=== PATIENT | male | born 1990 | race Caucasian/White ===

== ENCOUNTER → 2019-07-05 | Outpatient (CLI) | payer OTHER ==
--- NOTE | 2019-07-05 08:11 | US ---
EXAMINATION TYPE: US abdomen complete DATE OF EXAM: 07/05/2019 COMPARISON: NONE CLINICAL HISTORY: R10.12 LUQ abd pain. EXAM MEASUREMENTS: Liver Length: 13.7 cm Gallbladder Wall: 0.3 cm CBD: 0.3 cm Spleen: 11.1 cm Right Kidney: 11.3 x 3.8 x 5.6 cm Left Kidney: 11.0 x 5.0 x 5.3 cm Pancreas: Obscured by bowel gas Liver: wnl Gallbladder: large stones, no wall thickening Evidence for sonographic Osborne's sign: no CBD: wnl Spleen: wnl Right Kidney: No hydronephrosis or masses seen Left Kidney: No hydronephrosis or masses seen Upper IVC: wnl Abd Aorta: bifurcation obscured by bowel gas The liver is homogenous. The intrahepatic portion of the IVC and proximal abdominal aorta are within normal limits.Common bile duct is unremarkable. The visualized portions of the pancreas are homogen ous. The spleen is unremarkable. Kidneys are symmetric and free of hydronephrosis. No renal lesion s are seen. IMPRESSION: Uncomplicated cholelithiasis.
--- NOTE | 2019-07-05 09:12 | FL ---
EXAMINATION TYPE: FL UGI air DATE OF EXAM: 07/05/2019 9:01 AM COMPARISON: NONE CLINICAL HISTORY: Pain Preliminary view of the abdomen reveals a normal bowel gas pattern. Mild degenerative changes are not ed of the thoracolumbar spine. Upper GI examination was performed according to the air contrast techn ique. Barium and effervescent crystal was swallowed without difficulty or delay. Esophageal perista lsis and motility are within normal limits. Small reducible sliding type hiatal hernia. Mild gastroes ophageal reflux without esophagitis. The stomach has a normal appearance in terms of its size, shape and location. No gastric filling defects or ulcer craters are seen. The duodenal bulb and sweep are also free of intraluminal lesion or ulcer crater. IMPRESSION: Small reducible sliding type hiatal hernia. Mild gastroesophageal reflux without esophagitis.
== END | disposition home or self-care (01) ==
LOC: RADUSWWP 07:05
PROVIDERS: ATTEND Family Medicine
DX: K80.20 Calculus of gallbladder without cholecystitis without obstruction (principal); K44.9 Diaphragmatic hernia without obstruction or gangrene; K21.9 Gastro-esophageal reflux disease without esophagitis
CPT/HCPCS: 74246; 76700

== ENCOUNTER 2024-07-12 16:42 | Emergency (ER) | payer OTHER ==
--- NOTE | 2024-07-12 17:06 | ED ---
Anxiety HPI - General Chief Complaint: Anxiety Stated Complaint: ETOH/Panic Attack Time Seen by Provider: 07/12/24 16:46 Source: patient, EMS, RN notes reviewed, old records reviewed Mode of arrival: EMS - History of Present Illness Initial Comments: This is a 34-year-old male to the ER for evaluation of significant anxiety. Patient states he was at a family gathering Thanksgiving today when he became significantly anxious, due to a comment someone made to him, after this he went home to drink some alcohol but was unable to control his anxiety and presents to the ER having a panic attack MD Complaint: anxiety, heart racing -: hour(s) Symptoms: palpitations Place: home Previous History of Same: Yes Severity: moderate Quality: worsening Provoking factors: emotional stress Improves With: nothing Worsens With: nothing Associated symptoms: palpitations Review of Systems ROS Statement: Those systems with pertinent positive or pertinent negative responses have been documented in the HPI. ROS Other: All systems not noted in ROS Statement are negative. Past Medical History Additional Past Medical History / Comment(s): social anxiety. History of Any Multi-Drug Resistant Organisms: None Reported Past Psychological History: Anxiety Smoking Status: Never smoker Past Alcohol Use History: Rare Past Drug Use History: None Reported General Exam General appearance: anxious Head exam: Present: atraumatic, normocephalic, normal inspection Eye exam: Present: normal appearance, PERRL, EOMI. Absent: scleral icterus, conjunctival injection, periorbital swelling ENT exam: Present: normal exam, mucous membranes moist Neck exam: Present: normal inspection. Absent: tenderness, meningismus, lymphadenopathy Respiratory exam: Present: normal lung sounds bilaterally. Absent: respiratory distress, wheezes, rales, rhonchi, stridor Cardiovascular Exam: Present: regular rate, normal rhythm, normal heart sounds. Absent: systolic murmur, diastolic murmur, rubs, gallop, clicks GI/Abdominal exam: Present: soft, normal bowel sounds. Absent: distended, tende rness, guarding, rebound, rigid Extremities exam: Present: normal inspection, full ROM, normal capillary refill. Absent: tenderness, pedal edema, joint swelling, calf tenderness Back exam: Present: normal inspection Neurological exam: Present: alert, oriented X3, CN II-XII intact Psychiatric exam: Present: normal affect, normal mood Skin exam: Present: warm, dry, intact, normal color. Absent: rash Course Vital Signs 07/12/24 07/12/24 16:44 17:08 Respiratory 24 36 H Rate - Reevaluation(s) Reevaluation #1: 07/12/24 17:36 Medical records reviewed Reevaluation #2: 07/12/24 18:07 Patient symptoms are resolved Reevaluation #3: 07/12/24 18:07 Patient informed of results and questions answered Reevaluation #4: Was pt. sent in by a medical professional or institution (, [facility], [facility], urgent care, hospital, or [place] [facility]...) When possible be specific @ -no Did you speak to anyone other than the patient for history (EMS, parent, family, police, friend...)? What history was obtained from this source @ -no Did you review nursing and triage notes (agree or disagree)? Why? @ -agree Are old charts reviewed (outside hosp., previous admission, EMS record, old EKG, old radiological studies, urgent care reports/EKG's, [place] [facility] records)? Report findings @ -yes Differential Diagnosis (chest pain, altered mental status, abdominal pain women, abdominal pain men, vaginal bleeding, weakness, fever, dyspnea, syncope, headache, dizziness, GI bleed, back pain, seizure, CVA, palpatations, mental health, musculoskeletal)? @ -prior EKG interpreted by me (3pts min.). @ -yes X-rays interpreted by me (1pt min.). @ -yes negative for acute disease CT interpreted by me (1pt min.). @ -no U/S interpreted by me (1pt. min.). @ -no What testing was considered but not performed or refused? (CT, X-rays, U/S, labs)? Why? @ -none What meds were considered but not given or refused? Why? @ -none Did you discuss the management of the patient with other professionals (professionals i.e. [facility] Goldman, [facility], lab, RT, psych nurse, social service assistant, dietitian consultant, teacher, campus safety officer, casework manager)? Give summary @ -no Was smoking cessation discussed for >3mins.? @ -no Was critical care preformed (if so, how long)? @ -no Were there social determinants of health that impacted care today? How? (Homeles sness, low income, unemployed, alcoholism, drug addiction, transportation, low edu. Level, literacy, decrease access to med. care, [facility], rehab)? @ -none Was there de-escalation of care discussed even if they declined (Discuss DNR or withdrawal of care, Hospice)? DNR status @ -no What co-morbidities impacted this encounter? (DM, HTN, Smoking, COPD, CAD, Cancer, CVA, ARF, Chemo, Hep., AIDS, mental health diagnosis, sleep apnea, morbid obesity)? @ -none Was patient admitted / discharged? Hospital course, mention meds given and route, prescriptions, significant lab abnormalities, going to OR and other pertinent info. @ - Undiagnosed new problem with uncertain prognosis? @ -no Drug Therapy requiring intensive monitoring for toxicity (Heparin, Nitro, Insulin, Cardizem)? @ -no Were any procedures done? @ -no Diagnosis/symptom? @ - Acute, or Chronic, or Acute on Chronic? @ -Acute Uncomplicated (without systemic symptoms) or Complicated (systemic symptoms)? @ -Complicated Side effects of treatment? @ -no Exacerbation, Progression, or Severe Exacerbation? @ -exacerbation Poses a threat to life or bodily function? How? (Chest pain, USA, MS, pneumonia, PE, COPD, DKA, ARF, appy, cholecystitis, CVA, Diverticulitis, Homicidal, Suicidal, threat to staff... and all critical care pts) @ -yes Medical Decision Making - Medical Decision Making 34 male to ER for evaluation of anxiety and panic attack, symptoms resolved here in the ER patient can be discharged home Disposition Clinical Impression: Acute anxiety, Panic attack Disposition: HOME SELF-CARE Condition: Fair Instructions (If sedation given, give patient instructions): Generalized Anxiety Disorder (ED) Is patient prescribed a controlled substance at d/c from ED?: No Referrals: Josh Preston MD [Primary Care Provider] - 1-2 days Time of Disposition: 18:00
[2024-07-12] MEDS: SODIUM CHLORIDE 0.9% 500 ML 500 ML IV STA (17:45)
[2024-07-12] MEDS: LORazepam 2 MG/ML INJ IV STA (17:46)
[2024-07-12] MEDS: ONDANSETRON 4 MG/2 ML VIAL IVP STA (17:50)
[2024-07-12] MEDS: LORazepam 1 MG TAB PO STA (18:44)
[2024-07-12] MEDS: ONDANSETRON 4 MG ODT STARTER PACK 2 TAB BTL PO STA (18:44)
[2024-07-12 18:51] VITALS: BP 106/73; PULSE 98; RESP 16
== END 2024-07-12 19:05 | disposition home or self-care (01) ==
LOC: EC 16:42
DX: F41.0 Panic disorder [episodic paroxysmal anxiety] (principal)
CPT/HCPCS: 82075; 99283; 96374; 96375; J2060; J2405; S0119